=== PATIENT | female | born 1985 | race American Indian/Alaskan Native ===

== ENCOUNTER 2021-10-10 10:49 | Day surgery (SDC) | payer BC ==
[2021-10-10] MEDS ORDERED: LACTATED RINGERS 1,000 ML ONE ×2 (11:32→15:36)
[2021-10-10] MEDS ORDERED: ACETAMINOPHEN 500 MG TAB PO SCH (13:19)
[2021-10-10] MEDS ORDERED: MAGNESIUM OXIDE 400 MG TAB PO SCH (13:19)
[2021-10-10] MEDS ORDERED: ONDANSETRON 4 MG/2 ML INJ IV PRN (13:19)
[2021-10-10] MEDS ORDERED: HYDROmorphone 1 MG/1 ML INJ IV PRN ×2 (13:19)
--- NOTE | 2021-10-10 13:20 | Anesthesia Day of Surgery ---
Anesthesia Day of Surgery - Day of Surgery Patient Examined: Yes Patient H&P Reviewed: Yes Patient is NPO: Yes
--- NOTE | 2021-10-10 13:21 | Anesthesia Consultation ---
Anesthesia Consult and Med Hx Date of service: 10/10/21 - Airway Anesthetic Teeth Evaluation: Good ROM Head & Neck: Adequate Mental/Hyoid Distance: Adequate Mallampati Class: Class II Intubation Access Assessment: Good - Pre-Operative Health Status ASA Pre-Surgery Classification: ASA1 Proposed Anesthetic Plan: General - Pulmonary Hx Smoking: No - Central Nervous System Hx Psychiatric Problems: No - Gastrointestinal Hx Gastroesophageal Reflux Disease: No - Hematic Hx Sickle Cell Disease: No - Other Systems Hx Alcohol Use: No Hx Substance Use: No Hx Cancer: No Hx Obesity: No
[2021-10-10] MEDS ORDERED: MAGNESIUM OXIDE 400 MG TAB PO ONE (13:26)
[2021-10-10] MEDS ORDERED: LACTATED RINGERS 1,000 ML IV SCH (13:30)
[2021-10-10] MEDS ORDERED: ceFAZolin/Water 2 GM/20 ML 2 GM/20 ML SYRINGE IV ONE (13:33)
[2021-10-10] MEDS ORDERED: HEPARIN 5,000 UNIT/1 ML VIAL SUB-Q NR (13:45)
[2021-10-10] MEDS ORDERED: CELECOXIB 200 MG CAP PO NR (14:00)
[2021-10-10] MEDS ORDERED: BUPIVACAINE/PF (0.5%) 5 MG/1 ML 30 ML VIAL INFILTRATI ONE ×3 (14:11→14:58)
[2021-10-10] MEDS ORDERED: HYDROmorphone 1 MG/1 ML INJ ONE (14:27)
[2021-10-10] MEDS ORDERED: LIDOCAINE MPF (2%) 20 MG/1 ML VIAL 5 ML ONE (14:27)
[2021-10-10] MEDS ORDERED: ROCURONIUM 50 MG/5 ML INJ IV ONE (14:27)
[2021-10-10] MEDS ORDERED: propofoL 200 MG/20 ML VIAL IV ONE (14:28)
[2021-10-10] MEDS ORDERED: SODIUM CHLORIDE 0.9% IRR 1,500 ML BOTTLE IR ONE (14:58)
[2021-10-10] MEDS ORDERED: GLYCOPYRROLATE 0.4 MG/2 ML INJ ONE (15:35)
[2021-10-10] MEDS ORDERED: dexAMETHasone 20 MG/5 ML VIAL ONE (15:36)
[2021-10-10] MEDS ORDERED: ONDANSETRON 4 MG/2 ML INJ ONE (15:36)
[2021-10-10] MEDS ORDERED: NEOSTIGMINE 10MG/10 ML INJ MDV ONE (15:36)
--- NOTE | 2021-10-10 16:04 | Procedure Note ---
Date of procedure: 10/10/21 Pre-op diagnosis: Incarcerated ventral hernia Post-op diagnosis: same Procedure: Open repair of incarcerated ventral hernia with mesh Description of procedure: Pt was placed supine on the OR table. GETA was administered. Abdomen was prepped and draped. Skin and SQ tissue over the hernia were infiltrated with 8 ml of 0.5% Marcaine. Skin was incised. The hernia sac was immediately identified. The sac was dissected down to it's fascial margins. The sac was incised and was found to contain incarcerated omentum. The omentum was freed from the sac and was reduced back into the peritoneal cavity. A small piece of Ventralex-ST mesh was inserted into the peritoneal cavity and was appropriately positioned. The mesh was secured to the fascia and the fascia simultaneously approximated with interrupted sutures of 0- Ethibone. Skin was approximated with a running subcuticular suture of 4-0 Monocryl. Skin glue was applied. Pt was extubated in the OR. Pt tolerated the procedure well and was taken to PACU in stable condition. Anesthesia: GETA Surgeon: KULWINDER GARCIA Estimated blood loss: minimal Pathology: none Condition: stable Disposition: PACU
[2021-10-10 17:58] VITALS: BP 114/67
--- NOTE | 2021-10-10 19:28 | Post Anesthesia Evaluation ---
- Post Anesthesia Evaluation Patient Participated: Yes Airway Patent: Yes Stable Respiratory Function: Yes Nausea/Vomiting: No Temp > 96.8F: Yes Pain Manageable: Yes Adequeate Hydration: Yes Anesthesia Complications: No Block Receding Appropriately: Not Applicable Patient on Ventilator: No
== END 2021-10-10 16:45 | disposition home or self-care (01) ==
LOC: OR 10:49
PROVIDERS: ATTEND Surgery
DX: K43.6 Other and unspecified ventral hernia with obstruction, without gangrene (principal); Z79.899 Other long term (current) drug therapy; Z98.891 History of uterine scar from previous surgery; Z98.890 Other specified postprocedural states
CPT/HCPCS: 49561; 49568; 81025; C1781; J0690; J1100; J1170; J1644; J1815; J2405; J2704; J2710; J3490; J7120